=== PATIENT | female | born 1970 | race Caucasian/White ===

== ENCOUNTER → 2020-09-07 | Outpatient (CLI) | payer OTHER ==
--- NOTE | 2020-09-08 18:32 | Diagnostic Imaging Report ---
INDICATION: Routine screening. COMPARISON is made with prior mammogram 06/28/2015. 2-D and 3-D bilateral screening mammography was performed with CAD. Scattered fibroglandular densities are identified bilaterally. No mass or malignant appearing microcalcifications are seen. Axillae are unremarkable. IMPRESSION: BI-RADS Category 1 No mammographic features suspicious for malignancy are identified. ACR BI-RADS Category 1: Negative. Result letter will be mailed to the patient. Note: At least 10% of breast cancer is not imaged by mammography. Dictated by: Dictated on workstation # [id number]
== END ==
LOC: RAD 15:20
PROVIDERS: ATTEND Surgery
DX: Z12.31 Encounter for screening mammogram for malignant neoplasm of breast (principal)
CPT/HCPCS: 77063; 77067

== ENCOUNTER → 2021-01-30 | Outpatient (CLI) | payer OTHER ==
--- NOTE | 2021-01-30 14:59 | Diagnostic Imaging Report ---
PROCEDURE: US Thyroid. TECHNIQUE: Multiple Real-time grayscale images were obtained of the thyroid in various projections. INDICATION: Fatigue and abnormal thyroid labs. FINDINGS: The right lobe of the thyroid measures 3.4 x 1.5 x 1.6 cm and the left lobe measures 5.0 x 0.9 x 1.3 cm. The isthmus is 2 mm in thickness. The right lobe of the thyroid does contain a solid nodule measuring 1.7 x 1.5 x 1.5 cm. There are two subcentimeter nodules in the left lobe. No microcalcifications are seen. IMPRESSION: Dominant right lobe thyroid nodule. Fine-needle aspiration would be recommended. Dictated by: Dictated on workstation # [id number]
== END ==
LOC: RAD 11:05
PROVIDERS: ATTEND Family Medicine
DX: E04.1 Nontoxic single thyroid nodule (principal)
CPT/HCPCS: 76536

== ENCOUNTER → 2021-02-14 | Outpatient (CLI) | payer OTHER ==
[~2021-02-14] VITALS: Ht 162.6 cm; Wt 70.9 kg
[~2021-02-14] MED LIST: LIDOCAINE 1% INJ 20 ML 20 ML VIAL INJ ONE
--- NOTE | 2021-02-14 16:23 | Diagnostic Imaging Report ---
INDICATION: Right lobe thyroid nodule. Patient presents for ultrasound-guided fine-needle aspiration and biopsy. FINDINGS: Patient was brought to the procedure room and placed on table in the supine position. Ultrasound imaging of the right neck was performed to evaluate appropriate entry site. Right neck was then prepped and draped in usual sterile fashion. Small amount of 1% lidocaine was utilized for local anesthesia. Total of four passes were made into the dominant right lobe thyroid nodule utilizing 25-gauge needles and fine needle aspiration technique. A single pass was made with a Rotex needle and a Rotex biopsy was performed. Hemostasis was obtained using manual compression. Patient tolerated the procedure well and left the department in stable condition. IMPRESSION: Successful ultrasound-guided fine-needle aspiration and Rotex biopsy of right lobe thyroid nodule. Pathology results are currently pending. Dictated by: Dictated on workstation # [id number]
== END ==
LOC: RAD 14:45
PROVIDERS: ATTEND Family Medicine
DX: E04.1 Nontoxic single thyroid nodule (principal)
CPT/HCPCS: 10005

== ENCOUNTER 2021-09-17 08:27 | Outpatient (RCR) | payer OTHER ==
[2021-09-17 10:04] LABS: BASOPHILS % (AUTO) 1 % (0-10); EOSINOPHILS # (AUTO) 0.1 10^3/uL (0.0-0.3); EOSINOPHILS % (AUTO) 1 % (0-10); HEMATOCRIT 36 % (35-52); HEMOGLOBIN 12.4 g/dL (11.5-16.0); LYMPHOCYTES # (AUTO) 1.3 10^3/uL (1.0-4.0); LYMPHOCYTES % (AUTO) 19 % (12-44); MEAN CORPUSCULAR HEMOGLOBIN 32 pg (25-34); MEAN CORPUSCULAR HGB CONC 34 g/dL (32-36); MEAN CORPUSCULAR VOLUME 94 fL (80-99); MEAN PLATELET VOLUME 9.7 fL (9.0-12.2); MONOCYTES # (AUTO) 0.3 10^3/uL (0.0-1.0); MONOCYTES % (AUTO) 5 % (0-12); NEUTROPHILS # (AUTO) 4.8 10^3/uL (1.8-7.8); NEUTROPHILS % (AUTO) 74 % (42-75); PLATELET COUNT 180 10^3/uL (130-400); WHITE BLOOD COUNT 6.4 10^3/uL (4.3-11.0)
[2021-09-17 10:12] LABS: ALBUMIN 4.5 GM/DL (3.2-4.5); CHLORIDE 100 MMOL/L (98-107); POTASSIUM 4.2 MMOL/L (3.6-5.0); SODIUM 138 MMOL/L (135-145)
[2021-09-17 10:14] LABS: CALCIUM 9.7 MG/DL (8.5-10.1)
[2021-09-17 10:15] LABS: GLUCOSE 90 MG/DL (70-105); TOTAL PROTEIN 7.4 GM/DL (6.4-8.2)
[2021-09-17 10:16] LABS: CARBON DIOXIDE 29 MMOL/L (21-32)
[2021-09-17 10:17] LABS: BILIRUBIN,TOTAL 0.5 MG/DL (0.1-1.0)
[2021-09-17 10:18] LABS: ALKALINE PHOSPHATASE 48 U/L (40-136); CREATININE SERUM 1.23 MG/DL (0.60-1.30); GFR ESTIMATED 54
[2021-09-17 10:19] LABS: BUN/CREATININE RATIO 11
[2021-09-17 10:21] LABS: ALANINE AMINOTRANSFERASE 31 U/L (0-55)
[2021-09-17 11:15] LABS: FREE T4 (FREE THYROXINE) < 0.40 NG/DL (0.70-1.48)
== END 2021-10-02 | disposition home or self-care (01) ==
LOC: ONC 08:27
PROVIDERS: ATTEND Radiology Radiation Oncology
DX: C73 Malignant neoplasm of thyroid gland (principal)
CPT/HCPCS: 80053; 84432; 84439; 84443; 85025; 86800; G0463; 36415; 99204

== ENCOUNTER → 2021-09-21 | Outpatient (CLI) | payer OTHER ==
--- NOTE | 2021-09-21 15:49 | Diagnostic Imaging Report ---
INDICATION: Thyroid cancer PROCEDURE: PA and lateral chest FINDINGS: Heart size and pulmonary vascularity are normal. There is a 7 mm nodule in the right upper lobe. Lungs are otherwise clear. IMPRESSION: 7 mm solitary pulmonary nodule, right upper lobe. Dictated by: Dictated on workstation # [id number]
== END ==
LOC: RAD 15:16
PROVIDERS: ATTEND Radiology Radiation Oncology
DX: C73 Malignant neoplasm of thyroid gland (principal); R91.1 Solitary pulmonary nodule
CPT/HCPCS: 71046

== ENCOUNTER → 2021-09-26 | Outpatient (CLI) | payer OTHER ==
--- NOTE | 2021-09-26 15:03 | Diagnostic Imaging Report ---
PROCEDURE: CT chest without contrast. TECHNIQUE: Multiple contiguous axial images were obtained through the chest without the use of intravenous contrast. Auto Exposure Controls were utilized during the CT exam to meet ALARA standards for radiation dose reduction. INDICATION: Nodular opacity in the right upper lobe at radiograph. CT performed as further evaluation. FINDINGS: Right upper lobe nodule at radiograph is owing to a small calcified granuloma as a benign finding in the right upper lobe measuring 7.5 mm long axis. No noncalcified or suspicious lung mass. No findings of neoplasm. No pneumonia, edema, effusion, or pneumothorax. There is no thoracic adenopathy. No acute or suspicious chest wall abnormality. There is no pleural effusion; however, there is a moderate circumferential pericardial effusion. Pericardial fluid measures an average cephalocaudal thickness along the undersurface of the heart at 1.1 cm and along the left heart border posterolaterally at 7.5 mm. There is no abnormal distention of the cava. There are a few scattered calcified benign paratracheal and hilar granulomatous lymph nodes. No suspicious adenopathy. Upper abdomen shows a cyst in the left hepatic lobe. Negative adrenals, and no acute appearing abnormality. IMPRESSION: 1. Benign calcified granuloma in the right upper lobe accounts for the radiographic density. 2. Qodfe-ym-[id number] pericardial effusion. No pleural fluid. Clear lungs. Dictated by: Dictated on workstation # [id number]
== END ==
LOC: RAD 11:15
PROVIDERS: ATTEND Radiology Radiation Oncology
DX: C73 Malignant neoplasm of thyroid gland (principal); I31.3 Pericardial effusion (noninflammatory)
CPT/HCPCS: 71250

== ENCOUNTER → 2021-10-02 | Outpatient (CLI) | payer OTHER | LOC: CARD 10:30 | PROVIDERS: ATTEND Radiology Radiation Oncology | DX: C73 Malignant neoplasm of thyroid gland (principal) | CPT/HCPCS: 79005; 84703; A9517 ×2; 36415 ==

== ENCOUNTER → 2021-10-15 | Outpatient (CLI) | payer OTHER ==
--- NOTE | 2021-10-15 16:21 | Diagnostic Imaging Report ---
INDICATION: Thyroid carcinoma. Patient was administered 133.6 mCi of iodine 131 and whole-body imaging was performed after a 13 day delay. There is some uptake at the thyroid bed consistent with residual thyroid tissue. There appears to be some physiologic uptake within the salivary glands. Remainder of the body is unremarkable. IMPRESSION: There is residual activity in the thyroid bed with probable physiologic activity in the salivary glands. No other abnormal uptake is seen. Dictated by: Dictated on workstation # [id number]
== END ==
LOC: CARD 13:00
PROVIDERS: ATTEND Radiology Radiation Oncology
DX: C73 Malignant neoplasm of thyroid gland (principal)
CPT/HCPCS: 78018

== ENCOUNTER → 2022-01-21 | Outpatient (CLI) | payer OTHER ==
--- NOTE | 2022-01-21 17:19 | Diagnostic Imaging Report ---
INDICATION: Routine screening. Comparison is made with prior mammogram from 09/07/2020 and 06/28/2015. 2-D and 3-D bilateral screening mammography was performed with CAD. Both breasts are heterogeneously dense, limiting the sensitivity of mammography. No mass or malignant-appearing microcalcifications are seen. Axillae are unremarkable. IMPRESSION: No mammographic features suspicious for malignancy are identified. ACR BI-RADS Category 1: Negative. Result letter will be mailed to the patient. Note: At least 10% of breast cancer is not imaged by mammography. BI-RADS Category 1 Dictated by: Dictated on workstation # [id number]
== END ==
LOC: RAD 14:30
PROVIDERS: ATTEND Family Medicine
DX: Z12.31 Encounter for screening mammogram for malignant neoplasm of breast (principal)
CPT/HCPCS: 77063; 77067

== ENCOUNTER → 2022-01-30 | Outpatient (CLI) | payer OTHER ==
[~2022-01-30] VITALS: Ht 162.6 cm; Wt 74.0 kg
[~2022-01-30] MED LIST changes: +ALPR0.254 PO; +CALC0.253 PO; +LEVO-131 PO; -LIDOCAINE 1% INJ 20 ML 20 ML VIAL INJ ONE; +PARO10TA3 PO
== END ==
LOC: PREOP 05:52
PROVIDERS: ATTEND Surgery
DX: Z01.818 Encounter for other preprocedural examination (principal); Z12.11 Encounter for screening for malignant neoplasm of colon

== ENCOUNTER 2022-02-11 09:51 | Day surgery (SDC) | payer OTHER ==
[~2022-02-11] VITALS: Ht 163 cm; Wt 74.0 kg
[2022-02-11] MEDS ORDERED: LACTATED RINGERS 1,000 ML IV STA (09:56)
[2022-02-11 10:35] VITALS: BP 144/97
[2022-02-11] MEDS ORDERED: PROPOFOL INJECTION 50 ML IV ONE (11:48)
--- NOTE | 2022-02-11 12:18 | Progress Note-Post Operative ---
Post-Operative Progess Note Surgeon (s)/Artificial Flower Maker (s) Surgeon KELSY VARNER DO Artificial Flower Maker: ELLI Sinha Pre-Operative Diagnosis Screening Post-Operative Diagnosis Polyps int hemorrhoids Procedure & Operative Findings Date of Procedure 02/11/22 Procedure Performed/Findings Colonoscopy with snare polypectomy PROCEDURE NOTE: After informed consent was obtained, the patient was brought to the endoscopy suite, placed in bed in left lateral decubitus position. She was administered IV sedation by the MOTION PICTURE PROJECTIONIST APPRENTICE who then monitored her vitals the entire time, heart rate, blood pressure and pulse ox and the scope was inserted, pushed all the way to about 130 cm and pushed into the cecum, took a picture of appendiceal orifice and noted the ileocecal valve. Then slowly withdrew the scope insufflating to look circumferentially at the sweet starting in the cecum; where I found a polyp and removed it with snare. Continue up the ascending colon to the hepatic flexure, then down the transverse colon; where I found another polyp, also removed with snare. Continued to the splenic flexure, into the descending colon, then down into the sigmoid and finally into the rectal vault and retroflexed the scope. Took picture of the internal hemorrhoids. The patient tolerated the procedure. She was recovered in endoscopy suite. Recommended for repeat colonoscopy in 5 years. Anesthesia Type IV sedation by MOTION PICTURE PROJECTIONIST APPRENTICE Estimated Blood Loss Estimated blood loss (mL): scant Specimens/Packing Specimens Removed cecal polyp transverse colon polyp KELSY VARNER DO Feb 11, 2022 12:18
--- NOTE | 2022-02-11 12:19 | Progress Note-Pre Operative ---
Pre-Operative Progress Note Date H&P Reviewed: Jan 22, 2022 Time H&P Reviewed: 10:31 History & Physical: H&P Reviewed, Patient Examed, No changes noted Pre-Operative Diagnosis: screening KELSY VARNER DO Feb 11, 2022 12:19
--- NOTE | 2022-02-11 12:19 | Endoscopy Discharge Instruct ---
Endo Procedure/Findings Findings 1.: Polyp 2.: Internal Hemorrhoids Discharge Instructions - Activity: You might feel a little sleepy until tomorrow. This is due to the medicine you received to relax you. Until tomorrow, you should: NOT drive a car, operate machinery or power tools. NOT drink any alcoholic beverages. NOT make any important decisions or sign importortant papers. Do not return to work until tomorrow, unless otherwise instructed. Resume previous activities tomorrow. Diet: Start by taking liquids. If you tolerate liquids, advance to solid food. 1.: Colonscopy in 5 years Notify Physician - If you experience excessive bleeding, unusual abdominal pain, fever, or chest pain, contact your doctor immediately. KELSY VARNER DO Feb 11, 2022 12:19
[2022-02-11 12:23] VITALS: BP 114/76
--- NOTE | 2022-02-11 12:24 | Anesthesia-General Post-Op ---
MAC Patient Condition Mental Status/LOC: Same as Preop Cardiovascular: Satisfactory Nausea/Vomiting: Absent Respiratory: Satisfactory Pain: Controlled Complications: Absent Post Op Complications Complications None Follow Up Care/Instructions Patient Instructions None needed. Anesthesiology Discharge Order Discharge Order Patient is doing well, no complaints, stable vital signs, no apparent adverse anesthesia problems. No complications reported per nursing. LILIAN SALOMON CRNA Feb 11, 2022 12:24
[2022-02-11 12:28] VITALS: BP 117/84
[2022-02-11 12:30] VITALS: BP 117/84
[2022-02-11 12:54] VITALS: BP 117/84
== END 2022-02-11 14:30 | disposition home or self-care (01) ==
LOC: ENDO 09:51
PROVIDERS: ATTEND Surgery
DX: Z12.11 Encounter for screening for malignant neoplasm of colon (principal); D12.0 Benign neoplasm of cecum; D12.3 Benign neoplasm of transverse colon; K64.8 Other hemorrhoids; Z28.310 Unvaccinated for COVID-19

== ENCOUNTER → 2023-04-02 | Outpatient (CLI) | payer OTHER ==
--- NOTE | 2023-04-03 09:50 | Diagnostic Imaging Report ---
INDICATION: Routine screening. COMPARISON: 01/21/2022 and 09/07/2020. TECHNIQUE: 2D and 3D bilateral screening mammography was performed with CAD. FINDINGS: Scattered fibroglandular densities are identified bilaterally. The parenchymal pattern is stable. No mass or malignant-appearing microcalcifications are identified. The axillae are unremarkable. IMPRESSION: No mammographic features suspicious for malignancy are identified. ACR BI-RADS Category 1: Negative. Result letter will be mailed to the patient. Note: At least 10% of breast cancer is not imaged by mammography. Dictated by: Dictated on workstation # [id number]
== END ==
LOC: RAD 15:45
PROVIDERS: ATTEND Family Medicine
DX: Z12.31 Encounter for screening mammogram for malignant neoplasm of breast (principal)
CPT/HCPCS: 77063; 77067